=== PATIENT | female | born 1970 | race Caucasian/White ===

== ENCOUNTER 2025-01-04 13:09 | Emergency (ER) | payer BC ==
--- OUTSIDE RECORDS SUMMARY | 2025-01-04 13:12 | XMS REPORT | Continuity of Care Document ---
Author Name Unknown Address [address] [facility]. [address] [place] [address] [facility] [place] Address [address] [facility]. [address] [place] [address] Care Team Providers Care [facility] Staff Name Role Phone Kevin BLANCO, Rolanda Jordan Primary Care Physician [email or web address] Attending Clinician Unavaila ble LAB90 Attending Clinician Unavailable Allie Alejandro Attending Clinician [phone] MD KEATON Attending Clinician Unavailab Sydnee Garrett Attending Clinician [phone] EDD ALCANTAR Attending Clinician Judy vailable [email or web address]_S Admitting Clinician Unavaila ble Payers Payer Name Policy Type Policy Number Effective Date Expirati on Date Source BCBS 2 [id number] 2021 00:00:00 Problems Condition Name Condition Details Condition Category Status Onset Date Resolution Date Last Treatment Date Treating Clinician Comments Source No known active problems No known active problems Disease Norma Dobson Allergies, Adverse Reactions, Alerts Allergy Name Allergy Type Status Severity Reaction(s) Onset Date Inactive Date Treating Clinician Comments Source NO KNOWN ALLERGIE S Drug Class Active [facility] Social History Social Habit Start Date Stop Date Quantity Comments Source Sex Assigned At [facility] Exposure to SARS-CoV-2 (event) Not sure [facility] Smoking Status Start Date Stop Date Source Never smoked tobacco Norma Dobosn Former smoker 2020-01-17 00:00:00 2020-01-17 00:00:00 [facility] Medications Ordered Medication Name Filled Medication Name Start Date Stop Date Current Medication? Ordering Clinician Indication Dosage Frequency Signature (SIG) Comments Components Source Levothyroxi ne Sodium 75 MCG oral Tablet 2020-09 00:00: 00 Yes [id number] 75ug Take 1 tablet (75 mcg total) by mouth daily Norma Dobson Amoxicillin -Pot Clavulanate 875-125 MG oral Tablet 2020-09 00:00: 00 Yes [id number] 1{tbl} Take 1 tablet by mouth 2 times daily Norma Dobson Lansoprazol e 30 MG oral Delayed Release Capsule 03-04 00:00: 00 Yes [id number] TAKE 1 CAPSULE BY MOUTH EVERY DAY Norma Dobson methylPREDN ISolone 4 MG oral Tablet Therapy Pack 02-08 00:00: 00 Yes [id number] Take 1 iván by mouth See Admin Instructio ns Use as directed Norma Dobson Temazepam 15 MG oral Capsule 02-07 00:00: 00 Yes 15mg QD Take 1 capsule (15 mg total) by mouth nightly as needed Norma Dobson Levothyroxi ne Sodium 50 MCG oral Tablet 02-07 00:00: 00 08-14 00:00 :00 No 50ug Take 1 tablet (50 mcg total) by mouth daily Norma Dobson Rosuvastati n Calcium 10 MG oral Tablet 10-25 00:00: 00 Yes 10mg Take 10 mg by mouth daily Norma Dobson No known medications No Un mauro [facility] Vital Signs Vital Name Observation Time Observation Value Comments S radha Systolic blood pressure 2021-08-14 21:39:00 130 mm[Hg] Norma Dobson Diastolic blood pressure 2021-08-14 21:39:00 72 mm[Hg] Norma johnson Heart rate 2021-08-14 21:39:00 76 /min Wanda Dobson Body temperature 2021-08-14 21:39:00 36.39 Margaret Norma Dobson Respiratory rate 2021-08-14 21:39:00 16 /min Norma Dobson Body height 2021-08-14 21:39:00 167.6 cm Ivette Dobson Body weight 2021-08-14 21:39:00 111.131 kg Ivette Dobson BMI 2021-08-14 21:39:00 39.54 kg/m2 Ivette Dobson Encounters Start Date/Time End Date/Time Encounter Type Admission Type Attending [facility] Facility Care Department Encounter ID Source 2023-07-22 00:00:00 2023-07-22 00:00:00 Outpatient [email or web address] [email or web address] PRIV PRIV [id number] [facility] 2021-08-14 16:25:00 2021-08-14 16:25:00 Outpatient [facility] [id number] Norma Dobson 2021-08-14 15:30:00 2021-08-14 16:00:00 Office Visit Allie Hester [facility] .[id number] Norma Dobson 2021-06-13 00:00:00 2021-06-13 00:00:00 Outpatient MD NORMA SANCHEZ [id number] Norma Dobson 2020-01-18 00:00:00 2020-01-18 00:00:00 Telephone [facility] One .[id number] [facility] 2020-01-17 08:20:00 2020-01-17 08:20:00 Outpatient [facility] [id number] [facility]
--- NOTE | 2025-01-04 13:50 | RAD REPORT ---
EXAMINATION: CT ABDOMEN AND PELVIS WITHOUT CONTRAST CLINICAL INDICATION: ABD PAIN TECHNIQUE: CT abdomen and pelvis was performed, without IV contrast, as per department protocol. Axia l, sagittal and coronal reconstructions were obtained. One or more of the following dose reduction techniques were used: Automated exposure control, adjustment of the mA and kV according to the patien t size, and iterative reconstruction. Unless otherwise specified, incidental findings do not require dedicated imaging follow-up. COMPARISON: No prior exam. FINDINGS: The lack of intravenous contrast limits the sensitivity of this exam for evaluation of solid visceral organs, vascular structures, and retroperitoneum. LOWER CHEST: The visualized lung bases are clear. LIVER:Normal in size and contour. No focal lesion. Grossly unremarkable gallbladder. SPLEEN: Normal size. No focal lesion. PANCREAS: No mass, ductal dilation, or hitesh-pancreatic fluid. ADRENALS: Normal; no mass. KIDNEYS AND URETERS: Normal size and contour. No hydronephrosis. URINARY BLADDER: Normal contour. GASTROINTESTINAL TRACT: No evidence of bowel obstruction, significant free fluid, free air or abscess . There is mild diverticulosis coli of the sigmoid colon with mild inflammation in the left lower quadrant compatible with mild diverticulitis.. APPENDIX: Normal appendix. LYMPH NODES: No lymphadenopathy. MUSCULOSKELETAL: Moderate lumbosacral degenerative changes. IMPRESSION: Mild left lower quadrant acute diverticulitis suspected proximal sigmoid colon. No complication evide nt. After appropriate therapy, follow-up colonoscopy would be recommended.
[2025-01-04 14:59] LABS: Specific Gravity 1.006 (1.005-1.030); Urine Bilirubin NEGATIVE (Negative); Urine Blood Negative (Negative); Urine Clarity Clear (Clear); Urine Color Colorless (Yellow); Urine Glucose NEGATIVE (Negative); Urine Ketones NEGATIVE (Negative); Urine Microscopic Reflex YN NO UMIC; Urine Nitrite NEGATIVE (Negative); Urine Protein NEGATIVE (Negative); Urine Urobilinogen Normal (Normal)
[2025-01-04 15:00] LABS: Absolute Basophils 0.1 K/uL (0-0.5); Absolute Eosinophils 0.1 K/uL (0-0.5); Absolute Lymphocytes (CBC) 2.2 K/uL (0.7-4.9); Absolute Monocytes 0.9 K/uL (0.1-1.3); Absolute Neutrophil 7.7 K/uL (1.8-8.0); Basophils % 1.1 % (0-1.3); Eosinophils % 0.7 % (0-4.4); Hematocrit 40.4 % (36.0-45.0); Hemoglobin 14.6 g/dL (12.0-15.0); Lymphocytes % 20.1 % (15.3-44.8); MCH 31.3 pg (27.0-35.0); MPV 8.9 fL (7.6-11.3); Monocytes % 7.9 % (3.3-12.3); Neutrophils % 70.2 % (41.7-73.7); Platelets 273 thou/uL (152-406); RBC Red Blood Cell Count 4.65 M/uL (3.86-4.86)
[2025-01-04 15:15] LABS: ALT/SGPT 24 U/L (13-56); Albumin 3.8 g/dL (3.4-5.0); Albumin/Globulin Ratio 1.2 (1.1-1.8); Alkaline Phosphatase 63 U/L (45-117); Anion Gap 7.9 mEq/L (5.0-15.0); BUN Blood Urea Nitrogen 15 mg/dL (7-18); Bicarbonate 29 mEq/L (21-32); Bilirubin Total 0.5 mg/dL (0.2-1.0); Globulin 3.3 g/dL (2.3-3.5); Glomerular Filtration Rate 79 ml/min (=/>90); Glucose Level 107 mg/dL (74-106); Lipase 38 U/L (13-75); Potassium 3.9 mEq/L (3.5-5.1); Protein, Total 7.1 g/dL (6.4-8.2); Sodium Level 138 mEq/L (136-145)
[2025-01-04 15:16] LABS: AST/SGOT < 10 U/L (15-37)
[2025-01-04] MEDS ORDERED: KETOROLAC 30 MG/ML INJ ONE (15:17)
[2025-01-04] MEDS ORDERED: ONDANSETRON 4 MG/2 ML VIAL ONE (15:17)
[2025-01-04] MEDS ORDERED: NA CHLORIDE 0.9% 1,000 ML ONE (15:18)
[2025-01-04] MEDS ORDERED: CIPROFLOXACIN HCL 500 MG TAB ONE (15:43)
[2025-01-04] MEDS ORDERED: metroNIDAZOLE 500 MG TABLET ONE (15:43)
--- NOTE | 2025-01-04 15:44 | EDPHYS ---
Physician Documentation [facility] Name: Moriah Wynne Age: 54 yrs Sex: Female : 1970 Arrival Date: 01/04/2025 Time: 13:09 Bed 12 Private MD: ED Physician Nely Schmid HPI: 01/04 13:23 This 54 yrs old Female presents to ER via Unassigned with complaints of Abdominal Pain. kb 13:23 Pt is a 54 year old female who presents for left mid abd pain that started at 0300 this kb morning. Reports frequent urination and pain to abd after urination. Denies dysuria. Reports nausea this morning, but denies vomiting, diarrhea, fever. . Historical: - Allergies: 13:33 No Known Allergies; iw - PMHx: 13:33 gerd; Hypothyroidism; fatty liver; Hypertensive disorder; iw - PSHx: 13:33 Tonsillectomy; iw ROS: 13:23 Constitutional: As per HPI kb Exam: 13:23 Constitutional: This is a well developed, well nourished patient who is awake, alert, kb and in no acute distress. Head/Face: Normocephalic, atraumatic. ENT: Moist Mucous membranes Cardiovascular: Regular rate Respiratory: Respirations even and unlabored. No increased work of breathing. Talking in full sentences Back: No spinal tenderness. No costovertebral tenderness. Full range of motion. Skin: Warm, dry with normal turgor. Normal color. MS/ Extremity: Pulses equal, no cyanosis. Neurovascular intact. Full, normal range of motion. Neuro: Awake and alert, GCS 15, oriented to person, place, time, and situation. 13:23 Abdomen/GI: Inspection: abdomen appears normal, Bowel sounds: normal, Palpation: soft, in all quadrants, moderate abdominal tenderness, in the anterior aspect of left lateral abdomen, Vital Signs: 13:34 BP 137 / 88; Pulse 87; Resp 16; Temp 98.4; Pulse Ox 100% on R/A; Weight 90.72 kg; iw Height 5 ft. 6 in. ; Pain 7/10; 13:34 Body Mass Index 32.28 (90.72 kg, 167.64 cm) iw 13:34 Pain Scale: Adult iw MDM: 13:11 Medical Screening Exam initiated kb 15:26 Differential diagnosis: diverticulitis, non-specific abd pain, Pyelonephritis, kb Ureterolithiasis, urinary tract infection, colitis. Data reviewed: vital signs, nurses notes. 15:43 Consideration of Admission/Observation Escalation of care including kb admission/observation considered. admission considered but pt is nontoxic in appearance, tolerating po intake. Counseling: I had a detailed discussion with the patient and/or guardian regarding the historical points, exam findings, and any diagnostic results supporting the discharge/admit diagnosis, lab results, radiology results, the need for outpatient follow up, a family practitioner, to return to the emergency department if symptoms worsen or persist or if there are any questions or concerns that arise at home. 01/04 13:27 Order name: CBC with Diff; Complete Time: 15:18 kb 01/04 13:27 Order name: CMP; Complete Time: 15:18 kb 01/04 13:27 Order name: Lipase; Complete Time: 15:18 kb 01/04 13:27 Order name: Urinalysis w/ reflexes; Complete Time: 15:00 kb 01/04 13:27 Order name: CT Stone Protocol; Complete Time: 13:51 kb 01/04 13:27 Order name: IV Saline Lock; Complete Time: 14:53 kb 01/04 13:27 Order name: Labs collected and sent; Complete Time: 14:53 kb Administered Medications: 15:35 Drug: NS 0.9% IV 1000 ml IV at 1 bolus Per protocol; to be given as a bolus over 60 jb4 minutes Route: IV; Rate: 1 bolus; Site: right antecubital; 16:12 Follow up: Response: No adverse reaction; IV Status: pt discharged; IV Intake: 500ml jb4 15:36 Drug: TORadol - Ketorolac IVP 15 mg IVP once Route: IVP; Site: right antecubital; jb4 16:13 Follow up: Response: No adverse reaction; Marked relief of symptoms jb4 15:36 Drug: Ondansetron IVP 4 mg IVP once; over 2 minutes Route: IVP; Site: right antecubital;jb4 16:12 Follow up: Response: No adverse reaction jb4 15:45 Drug: Ciprofloxacin PO 500 mg PO once Route: PO; jb4 16:11 Follow up: Response: No adverse reaction jb4 15:45 Drug: metroNIDAZOLE PO 500 mg PO once Route: PO; jb4 16:11 Follow up: Response: No adverse reaction jb4 Disposition Summary: 01/04/25 15:44 Discharge Ordered Notes: Location: Home kb Condition: Stable kb Diagnosis - Diverticulitis of intestine, part unspecified, without perforation or abscess kb without bleeding Followup: kb - With: Emergency Department - When: As needed - Reason: Worsening of condition Followup: kb - With: Private Physician - When: 2 - 3 days - Reason: Recheck today's complaints, Continuance of care, Re-evaluation by your physician Discharge Instructions: - Discharge Summary Sheet kb - Diverticulitis, [id number] kb Forms: - Medication Reconciliation Form kb - Antibiotic Education kb - Prescription Opioid Use kb - Patient Portal Instructions kb - Leadership Thank You Letter Prescriptions: - Flagyl 500 mg Oral Tablet - take 1 tablet ORAL route every 8 hours for 10 days; 30 tablet; Refills: 0, kb Product Selection Permitted - Cipro 500 mg Oral tablet - take 1 tablet ORAL route every 12 hours for 10 days; 20 tablet; Refills: 0, kb Product Selection Permitted - Diclofenac Sodium 75 mg Oral tablet, delayed release (enteric coated) - take 1 tablet ORAL route 2 times per day As needed; 30 tablet; Refills: 0, kb Product Selection Permitted Signatures: Dispatcher [employer] Audrey Elizalde, INDUSTRIAL TECHNOLOGIST-C INDUSTRIAL TECHNOLOGIST-Milly De Anda, RN Erick Benton RN RN jb4
--- NOTE | 2025-01-04 15:44 | ER ---
Nurse's Notes [facility] Name: Moriah Wynne Age: 54 yrs Sex: Female : 1970 Arrival Date: 01/04/2025 Time: 13:09 Bed 12 Private MD: Diagnosis: Diverticulitis of intestine, part unspecified, without perforation or abscess without bleeding Presentation: 01/04 13:32 Chief complaint: Patient states: left sided abd pain and pain after urinating. iw Coronavirus screen: At this time, the client does not indicate any symptoms associated with coronavirus-19. Ebola Screen: No symptoms or risks identified at this time. Initial Sepsis Screen: Does the patient meet any 2 criteria? No. Patient's initial sepsis screen is negative. Does the patient have a suspected source of infection? No. Patient's initial sepsis screen is negative. Risk Assessment: Do you want to hurt yourself or someone else? Patient reports no desire to harm self or others. Onset of symptoms. 13:32 Method Of Arrival: Ambulatory iw 13:32 Acuity: ANTOINE 3 iw Triage Assessment: 13:33 General: Appears in no apparent distress. Behavior is calm, cooperative. Pain: iw Complains of pain in anterior aspect of left lateral abdomen. GI: Abdomen is non-distended. Historical: - Allergies: 13:33 No Known Allergies; iw - PMHx: 13:33 gerd; Hypothyroidism; fatty liver; Hypertensive disorder; iw - PSHx: 13:33 Tonsillectomy; iw Screenin:10 [facility] ED Fall Risk Assessment (Adult) History of falling in the last 3 months, jb4 including since admission No falls in past 3 months (0 pts) Confusion or Disorientation No (0 pts) Intoxicated or Sedated No (0 pts) Impaired Gait No (0 pts) Mobility Assist Device Used No (0 pt) Altered Elimination No (0 pt) Score/Fall Risk Level 0 - 2 = Low Risk Oriented to surroundings, Maintained a safe environment. Abuse screen: Denies threats or abuse. Nutritional screening: No deficits noted. Tuberculosis screening: No symptoms or risk factors identified. Assessment: 16:10 Reassessment: Patient appears in no apparent distress at this time. Patient and/or jb4 family updated on plan of care and expected duration. Pain level reassessed. Patient is alert, oriented x 3, equal unlabored respirations, skin warm/dry/pink. Vital Signs: 13:34 BP 137 / 88; Pulse 87; Resp 16; Temp 98.4; Pulse Ox 100% on R/A; Weight 90.72 kg; iw Height 5 ft. 6 in. ; Pain 7/10; 13:34 Body Mass Index 32.28 (90.72 kg, 167.64 cm) iw 13:34 Pain Scale: Adult iw ED Course: 13:11 Patient arrived in ED. al6 13:11 Audrey Brooke FNP-C is PHCP. kb 13:11 Nely Schmid MD is Attending Physician. kb 13:33 Triage completed. iw 13:41 Arm band placed on. iw 13:43 CT Stone Protocol In Process Unspecified. EDMS 14:53 Inserted saline lock: 20 gauge in right antecubital area, using aseptic technique. ss Blood collected. Flushed with 10 mL NS. 16:10 Patient has correct armband on for positive identification. Bed in low position. Call jb4 light in reach. Side rails up X 1. Provided Education on: discharge instructions.. 16:10 No provider procedures requiring assistance completed. IV discontinued, intact, jb4 bleeding controlled, No redness/swelling at site. Pressure dressing applied. Administered Medications: 15:35 Drug: NS 0.9% IV 1000 ml IV at 1 bolus Per protocol; to be given as a bolus over 60 jb4 minutes Route: IV; Rate: 1 bolus; Site: right antecubital; 16:12 Follow up: Response: No adverse reaction; IV Status: pt discharged; IV Intake: 500ml jb4 15:36 Drug: TORadol - Ketorolac IVP 15 mg IVP once Route: IVP; Site: right antecubital; jb4 16:13 Follow up: Response: No adverse reaction; Marked relief of symptoms jb4 15:36 Drug: Ondansetron IVP 4 mg IVP once; over 2 minutes Route: IVP; Site: right antecubital;jb4 16:12 Follow up: Response: No adverse reaction jb4 15:45 Drug: Ciprofloxacin PO 500 mg PO once Route: PO; jb4 16:11 Follow up: Response: No adverse reaction jb4 15:45 Drug: metroNIDAZOLE PO 500 mg PO once Route: PO; jb4 16:11 Follow up: Response: No adverse reaction jb4 Medication: 16:10 VIS not applicable for this client. jb4 Intake: 16:12 IV: 500ml; Total: 500ml. jb4 Outcome: 15:44 Discharge ordered by . odalys 16:10 Discharged to home ambulatory, with family, jb4 16:10 Condition: stable 16:10 Discharge instructions given to patient, Instructed on discharge instructions, follow up and referral plans. medication usage, Demonstrated understanding of instructions, follow-up care, medications, Prescriptions given X 3, 16:13 Patient left the ED. jb4 Signatures: Dispatcher [employer] EDMS Audrey Brooke, TILE MECHANIC HELPER-C TILE MECHANIC HELPER-Ckb Milly Briones, RN RN Julieta Maldonado RN RN ss Bryson, James, RN RN jbHawa Navarro
[2025-01-04 17:14] VITALS: BP 137/88; TEMP 98.4; O2SAT 100
== END 2025-01-04 16:13 | disposition home or self-care (01) ==
LOC: ER 13:09
DX: K57.32 Diverticulitis of large intestine without perforation or abscess without bleeding (principal)
CPT/HCPCS: 85025; 36415; 81003; 83690; 80053; 76377; 74176; J2405; J7030